=== PATIENT | female | born 1985 | race Two or more races ===

== ENCOUNTER → 2020-01-25 | Day surgery (SDC) | payer OTHER ==
[~2020-01-25] MED LIST: COZAAR100 MG PO
== END | disposition home or self-care (01) ==
LOC: ADM 01-18 11:00 → CIR.AMB 05:30
PROVIDERS: ATTEND Colon & Rectal Surgery
DX: K64.8 Other hemorrhoids (principal); K64.4 Residual hemorrhoidal skin tags; Z20.828 Contact with and (suspected) exposure to other viral communicable diseases